=== PATIENT | female | born 1940 | race Caucasian/White ===

== ENCOUNTER → 2017-10-03 | Outpatient (CLI) | payer MEDICAID, OTHER ==
--- NOTE | 2017-10-03 15:22 | RAD ---
EXAM DESCRIPTION: Pelvis CLINICAL HISTORY: 77 years Female, PAIN IN LEFT HIP COMPARISON: None. TECHNIQUE: AP radiograph of the pelvis was performed. FINDINGS: The pelvic ring appears grossly intact on this single AP radiograph. No acute fracture or dislocation. Bilateral sacroiliac joints appear normal. Visualized prosthesis appears intact. The visualized lumbo-sacral spine demonstrates moderate degenerative changes. IMPRESSION: Single AP radiograph of the pelvis demonstrates grossly intact pelvic ring. Visualized left prosthesis appears intact. Electronically signed by: Marya Reyna MD 10/03/2017 3:20 PM CDT
--- NOTE | 2017-10-03 15:38 | RAD ---
EXAM DESCRIPTION: Hip,Left 2 Views CLINICAL HISTORY: 77 years Female, PAIN IN LEFT HIP COMPARISON: None available. FINDINGS: The visualized bones are well-mineralized.No acute fracture or dislocation. Intact left total hip arthroplasty. The soft tissues appear grossly unremarkable. IMPRESSION: Intact total left hip arthroplasty. Electronically signed by: Marya Reyna MD 10/03/2017 3:36 PM CDT
== END ==
LOC: RAD 09:03
PROVIDERS: ATTEND Orthopaedic Surgery
DX: M25.552 Pain in left hip (principal); Z96.642 Presence of left artificial hip joint

== ENCOUNTER → 2018-03-06 | Outpatient (CLI) | payer OTHER, MEDICAID ==
--- NOTE | 2018-03-06 15:21 | RAD ---
EXAM DESCRIPTION: Knee,Right 2 or More Views CLINICAL HISTORY: 78 years Female, PAIN IN RIGHT KNEE TECHNIQUE: 4 views of the right knee were performed. COMPARISON: None available. FINDINGS: The visualized bones appear well mineralized. No acute fracture or dislocation. Tricompartmental osteoarthritis is noted. There is small suprapatellar joint effusion. The soft tissues appear grossly unremarkable. IMPRESSION: Mild tricompartmental osteoarthritis. Small suprapatellar joint effusion. Electronically signed by: Marya Reyna MD 03/06/2018 3:20 PM CDT
== END ==
LOC: RAD 09:32
PROVIDERS: ATTEND Orthopaedic Surgery
DX: M17.11 Unilateral primary osteoarthritis, right knee (principal); M25.561 Pain in right knee; M25.461 Effusion, right knee